=== PATIENT | male | born 1960 | race Caucasian/White ===

== ENCOUNTER 2018-08-12 13:57 | Emergency (ER) | payer SELFPAY ==
[2018-08-12 14:06] VITALS: BP 136/91
--- NOTE | 2018-08-12 14:07 | Emergency Department Report ---
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 Due to findings the following was ordered: ED Disposition for MSE Condition: Stable
--- NOTE | 2018-08-12 15:08 | XRay Report ---
ROUTINE CHEST, TWO VIEWS: HISTORY: Swelling legs. The trachea, heart, mediastinal contour, lung zhang and bony thorax are unremarkable. IMPRESSION: Unremarkable chest x-ray.
[2018-08-12 15:29] LABS: Alanine Aminotransferase 18 units/L (7-56); Albumin 2.8 g/dL (3.9-5); BUN/Creatinine Ratio 6; Blood Urea Nitrogen 4 mg/dL (9-20); Calcium 7.6 mg/dL (8.4-10.2); Hemolysis Index 2
[2018-08-12 15:34] LABS: Basophils % (Auto) 0.9 % (0.0-1.8); Eosinophils # (Auto) 0.2 K/mm3 (0.0-0.4); Hematocrit 30.8 % (35.5-45.6); Hemoglobin 10.3 gm/dl (11.8-15.2); Lymphocytes # (Auto) 1.1 K/mm3 (1.2-5.4); Lymphocytes % (Auto) 24.9 % (13.4-35.0); Mean Corpuscular HGB Conc 34 % (32-34); Mean Corpuscular Volume 88 fl (84-94); Monocytes # (Auto) 0.4 K/mm3 (0.0-0.8); Monocytes % (Auto) 9.2 % (0.0-7.3); Red Blood Count 3.51 M/mm3 (3.65-5.03); Red Cell Distribution Width 19.8 % (13.2-15.2)
[2018-08-12 15:45] LABS: INR 1.22 (0.87-1.13)
[2018-08-12 15:46] LABS: Partial Thromboplastin Time 27.4 Sec. (24.2-36.6)
[2018-08-12 16:50] LABS: Platelet Count 33 K/mm3 (140-440)
--- NOTE | 2018-08-12 16:54 | Emergency Department Report ---
ED Extremity Problem HPI - General Chief complaint: Extremity Injury, Lower Stated complaint: LEGS SWELLING Time Seen by Provider: 08/12/18 14:07 Source: EMS Mode of arrival: Ambulatory Limitations: Language Barrier - History of Present Illness Initial comments: 58-year-old male with a past medical history of alcohol abuse since the age of 13 presents to the hospital with complaints of bilateral lower extremity edema 3 days. Patient denies abdominal swelling, shortness of breath, chest pain, decreased urine output, recent travel. He is currently intoxicated with EtOH on breath. He also has a history of polysubstance abuse 11 years ago. Patient detained to drink alcohol daily. Severity scale (0 -10): 10 - Related Data Allergies Allergy/AdvReac Type Severity Reaction Status Date / Time No Known Allergies Allergy Unverified 08/12/18 13:59 ED Review of Systems ROS: Stated complaint: LEGS SWELLING Other details as noted in HPI Comment: All other systems reviewed and negative ED Past Medical Hx - Past Medical History Previous Medical History?: No - Surgical History Past Surgical History?: No - Social History Smoking Status: Never Smoker Substance Use Type: Alcohol ED Physical Exam - General Limitations: Language Barrier - Other Other exam information: General: No limitations, patient is alert in no acute distress Head exam: Atraumatic, normocephalic Eyes exam: Normal appearance ENT: Moist mucous membrane, EtOH on breath Neck exam: Normal inspection, full range of motion, no meningismus nontender Respiratory exam: Clear to auscultation bilateral, no wheezes, rales, crackles Cardiovascular: Normal rate and rhythm Abdomen: Soft, nondistended, and nontender, with normal bowel sounds, no rebound, or guarding Extremity: Full range of motion, bilateral 2+ pitting lower extremity edema. No calf tenderness Back: Normal Inspection, full range of motion, no tenderness Neurologic: Alert, oriented x3, cranial nerves intact, no motor or sensory deficit Psychiatric: normal affect, normal mood Skin: No warmth to lay ED Course Vital Signs 08/12/18 14:05 Temperature 98.1 F Pulse Rate 99 H Respiratory 20 Rate Blood Pressure 136/91 O2 Sat by Pulse 98 Oximetry ED Medical Decision Making - Lab Data Result diagrams: 08/12/18 14:36 08/12/18 14:36 Lab Results 08/12/18 08/12/18 08/12/18 Range/Units 14:36 14:36 14:36 WBC 4.6 (4.5-11.0) K/mm3 RBC 3.51 L (3.65-5.03) M/mm3 Hgb 10.3 L (11.8-15.2) gm/dl Hct 30.8 L (35.5-45.6) % MCV 88 (84-94) fl MCH 29 (28-32) pg MCHC 34 (32-34) % RDW 19.8 H (13.2-15.2) % Plt Count 33 L (140-440) K/mm3 Lymph % (Auto) 24.9 (13.4-35.0) % Terrell % (Auto) 9.2 H (0.0-7.3) % Eos % (Auto) 4.0 (0.0-4.3) % Baso % (Auto) 0.9 (0.0-1.8) % Lymph # 1.1 L (1.2-5.4) K/mm3 Terrell # 0.4 (0.0-0.8) K/mm3 Eos # 0.2 (0.0-0.4) K/mm3 Baso # 0.0 (0.0-0.1) K/mm3 Seg Neutrophils % 61.0 (40.0-70.0) % Seg Neutrophils # 2.8 (1.8-7.7) K/mm3 PT 16.2 H (12.2-14.9) Sec. INR 1.22 H (0.87-1.13) APTT 27.4 (24.2-36.6) Sec. Sodium 136 L (137-145) mmol/L Potassium 3.7 (3.6-5.0) mmol/L Chloride 98.1 (98-107) mmol/L Carbon Dioxide 23 (22-30) mmol/L Anion Gap 19 mmol/L BUN 4 L (9-20) mg/dL Creatinine 0.7 L (0.8-1.5) mg/dL Estimated GFR > 60 ml/min BUN/Creatinine Ratio 6 % Glucose 141 H (75-100) mg/dL Calcium 7.6 L (8.4-10.2) mg/dL Total Bilirubin 0.50 (0.1-1.2) mg/dL AST 97 H (5-40) units/L ALT 18 (7-56) units/L Alkaline Phosphatase 319 H (35-129) units/L Troponin T < 0.010 (0.00-0.029) ng/mL NT-Pro-B Natriuret Pep (0-900) pg/mL Total Protein 7.3 (6.3-8.2) g/dL Albumin 2.8 L (3.9-5) g/dL Albumin/Globulin Ratio 0.6 % Lipase 64 H (13-60) units/L Plasma/Serum Alcohol (0-0.07) % 08/12/18 08/12/18 Range/Units 14:36 14:36 WBC (4.5-11.0) K/mm3 RBC (3.65-5.03) M/mm3 Hgb (11.8-15.2) gm/dl Hct (35.5-45.6) % MCV (84-94) fl MCH (28-32) pg MCHC (32-34) % RDW (13.2-15.2) % Plt Count (140-440) K/mm3 Lymph % (Auto) (13.4-35.0) % Terrell % (Auto) (0.0-7.3) % Eos % (Auto) (0.0-4.3) % Baso % (Auto) (0.0-1.8) % Lymph # (1.2-5.4) K/mm3 Terrell # (0.0-0.8) K/mm3 Eos # (0.0-0.4) K/mm3 Baso # (0.0-0.1) K/mm3 Seg Neutrophils % (40.0-70.0) % Seg Neutrophils # (1.8-7.7) K/mm3 PT (12.2-14.9) Sec. INR (0.87-1.13) APTT (24.2-36.6) Sec. Sodium (137-145) mmol/L Potassium (3.6-5.0) mmol/L Chloride (98-107) mmol/L Carbon Dioxide (22-30) mmol/L Anion Gap mmol/L BUN (9-20) mg/dL Creatinine (0.8-1.5) mg/dL Estimated GFR ml/min BUN/Creatinine Ratio % Glucose (75-100) mg/dL Calcium (8.4-10.2) mg/dL Total Bilirubin (0.1-1.2) mg/dL AST (5-40) units/L ALT (7-56) units/L Alkaline Phosphatase (35-129) units/L Troponin T (0.00-0.029) ng/mL NT-Pro-B Natriuret Pep 8.45 (0-900) pg/mL Total Protein (6.3-8.2) g/dL Albumin (3.9-5) g/dL Albumin/Globulin Ratio % Lipase (13-60) units/L Plasma/Serum Alcohol 0.36 H (0-0.07) % - Radiology Data Radiology results: report reviewed ROUTINE CHEST, TWO VIEWS: HISTORY: Swelling legs. The trachea, heart, mediastinal contour, lung zhang and bony thorax are unremarkable. IMPRESSION: Unremarkable chest x-ray. - Medical Decision Making Patient is edema is likely secondary to low albumin secondary to liver dysfunction from chronic alcohol abuse. Patient is elevated AST, slightly elevated coags, and thrombocytopenia all likely sequela of chronic alcohol abuse. No signs of acute bleeding or anemia. Patient also presents here acutely intoxicated. Patient encouraged to follow-up PMD and [facility] or another alcohol cessation program. He was counseled to not quit cold turkey due to risk of tremors and seizures but his symptoms will [email or web address] to worsen if it does not stop drinking alcohol. - Differential Diagnosis CHF, renal function, liver function Critical Care Time: No Critical care attestation.: If time is entered above; I have spent that time in minutes in the direct care of this critically ill patient, excluding procedure time. ED Disposition Clinical Impression: Alcohol abuse, Leg edema, Liver dysfunction, Hypoalbuminemia, Thrombocytopenia Disposition: DC-01 TO HOME OR SELFCARE Is pt being admited?: No Does the pt Need Aspirin: No Condition: Stable Instructions: Abuse of Alcohol (ED), Thrombocytopenia (ED), Leg Edema (ED) Additional Instructions: Your labs today reveal several abnormalities that are caused by your chronic alcohol abuse. The alcohol is now affecting her liver causing low protein and leg swelling. Your platelet counts also low due to alcohol abuse. You are at risk for bleeding and worsening swelling due to this liver dysfunction due to alcohol. Follow up with the resources provided to discussion of options for help to stop drinking alcohol and for further treatment of your condition. Please return if symptoms worsen as indicated by your discharge instructions. Referrals: ANGELIKA DEJESUS MD [Primary Care Provider] - 3-5 Days [facility] [Outside] - 3-5 Days Time of Disposition: 17:03 Print Language: CYPRIOT
== END 2018-08-12 17:27 | disposition home or self-care (01) ==
LOC: ED 13:57
DX: R60.0 Localized edema (principal); K76.9 Liver disease, unspecified; F10.10 Alcohol abuse, uncomplicated; E88.09 Other disorders of plasma-protein metabolism, not elsewhere classified; D69.6 Thrombocytopenia, unspecified
CPT/HCPCS: 36415; 71046; 80053; 83690; 83880; 84484; 85025; 85610; 85730; 93005; 93010; 99284; G0480; 80320